=== PATIENT | female | born 1980 | race Caucasian/White ===

== ENCOUNTER 2020-10-12 14:45 | Inpatient (IN) ==
[2020-10-12] MEDS ORDERED: *HR* HYDROmorphone (PF) 1 MG/ML SYRINGE IVP STA (15:23)
[2020-10-12] MEDS ORDERED: Isovue-370 500 ML BOTTLE IVP ONE ×2 (15:23→16:40)
[2020-10-12] MEDS ORDERED: Piperacillin/Tazobactam 3.375 GM in Water for inj. (sterile) 20 ML IVP ONE (15:24)
[2020-10-12 15:38] LABS: Hematocrit 34.7 % (35.3-44.9); Hemoglobin 11.7 g/dL (11.5-15.4); Mean Corpuscular HGB Conc 33.7 g/dL (31.6-35.5); Mean Corpuscular Hemoglobin 30.4 pg (28.0-33.3); Mean Corpuscular Volume 90.1 fL (83.0-100.0); Platelet Count 114 K/mcL (140-400); Red Blood Count 3.85 M/mcL (3.82-4.97); Red Cell Distribution Width 12.7 % (11.5-14.5); White Blood Count 17.9 K/mcL (4.3-11.1)
[2020-10-12 15:59] LABS: Bilirubin,Urine Negative (Negative); Blood,Urine Negative (Negative); Clarity,Urine Clear (Clear); Color,Urine Yellow (Yellow); Glucose,Urine (UA) Normal (Normal); Ketones,Urine Negative (Negative); Leukocyte Esterase,Urine Negative (Negative); Nitrite,Urine Negative (Negative); Protein,Urine Trace mg/dL (Neg-Trace); Specific Gravity,Urine 1.012 (1.010-1.025); Urobilinogen,Urine Normal (Normal)
[2020-10-12 16:02] LABS: Basophils # 0.4 K/mcL (0.0-0.2); Lymphocytes # 1.8 K/mcL (0.6-4.6); Neutrophils # 15.8 K/mcL (1.6-8.9); Reactive Lymphocytes Present (Not Present)
[2020-10-12 16:06] LABS: Alanine Aminotransferase 33 Units/L (7-52); Albumin 2.8 g/dL (3.5-5.7); Albumin/Globulin Ratio 0.9 (1.1-2.2); Alkaline Phosphatase 365 Units/L (34-104); Aspartate Amino Transferase 37 Units/L (13-39); BUN/Creatinine Ratio 19 (6-26); Bilirubin,Direct 1.5 mg/dL (0.0-0.2); Bilirubin,Indirect 0.8 mg/dL (0.0-1.0); Bilirubin,Total 2.3 mg/dL (0.3-1.0); Blood Urea Nitrogen 16 mg/dL (6-20); Calcium 8.5 mg/dL (8.6-10.3); Carbon Dioxide 24 mEq/L (23-29); Chloride 104 mEq/L (98-107); Globulin 3.2 g/dL (2.4-3.5); Glucose 93 mg/dL (70-105); Lipase 13 Units/L (11-82); Magnesium 1.9 mg/dL (1.6-2.6); Osmolality,Calculated 281 (280-300); Phosphorous 1.5 mg/dL (2.7-4.5); Potassium 4.1 mEq/L (3.5-5.1); Sodium 135 mEq/L (136-145); Troponin I 0.12 ng/mL (< 0.04); eGFR For African Americans > 60 (> 60); eGFR For Non-African Americans > 60 (> 60)
[2020-10-12] MEDS ORDERED: Aspirin 81 MG TAB.CHEW PO ONE (16:30)
[2020-10-12] MEDS ORDERED: 0.9 % Sodium Chloride 1,000 ML IVC ONE ×2 (16:37→21:19)
[2020-10-12] MEDS ORDERED: *HR* Heparin 5,000 UNIT/ML VIAL IVP ONE (17:34)
[2020-10-12] MEDS ORDERED: *HR* Heparin 5,000 UNIT/ML VIAL IVP PRN (17:34)
[2020-10-12] MEDS ORDERED: Heparin 25,000UNIT/250ML 1/2NS 25,000 UNIT/250 ML IV.SOLN IVC SCH (17:45)
[2020-10-12] MEDS ORDERED: Naloxone 0.4 MG/ML INJ IVP PRN (20:29)
[2020-10-12] MEDS ORDERED: Ondansetron 4 MG/2 ML VIAL IVP PRN (20:33)
[2020-10-12 21:22] LABS: Heparin anti-factor XA UFH 0.04 IU/mL (0.30-0.70)
[2020-10-12 21:23] LABS: INR 1.2; Prothrombin Time 13.8 Seconds (9.4-12.1)
[2020-10-12 22:03] LABS: Adenovirus Not Detected (Not Detect); Bordetella Pertussis Not Detected (Not Detect); Chlamydophila pneumoniae Not Detected (Not Detect); Coronavirus 229E Not Detected (Not Detect); Coronavirus HKU1 Not Detected (Not Detect); Coronavirus NL63 Not Detected (Not Detect); Coronavirus OC43 Not Detected (Not Detect); Human Metapneumovirus Not Detected (Not Detect); Human Rhinovirus/Enterovirus Not Detected (Not Detect); Influenza A Subtype 2009 H1 Not Detected (Not Detect); Influenza B Not Detected (Not Detect); Mycoplasma pneumoniae Not Detected (Not Detect); Parainfluenza Virus 1 Not Detected (Not Detect); Parainfluenza Virus 2 Not Detected (Not Detect); Parainfluenza Virus 3 Not Detected (Not Detect); Parainfluenza Virus 4 Not Detected (Not Detect); Respiratory Syncytial Virus Not Detected (Not Detect); SARS-CoV-2 Not Detected (Not Detect)
[2020-10-12] MEDS ORDERED: *HR* OxyCODONE Immed Rel 5 MG TABLET PO PRN (22:13)
[2020-10-12] MEDS ORDERED: Acetaminophen 325 MG TABLET PO PRN (22:13)
[2020-10-12] MEDS: *HR* OxyCODONE Immed Rel 5 MG TABLET PO PRN (22:40)
[2020-10-13] MEDS: Piperacillin/Tazobactam 3.375 GM in 0.9 % Sodium Chloride Mini Bag 100 ML IVPB SCH ×3 (00:47→15:51)
[2020-10-13] MEDS: *HR* Heparin 5,000 UNIT/ML VIAL IVP PRN ×2 (00:54→07:48)
[2020-10-13 01:30] LABS: Basophils # 0.1 K/mcL (0.0-0.2); Basophils % 0.3 %; Eosinophils # 0.1 K/mcL (0.0-0.6); Eosinophils % 0.3 %; Hematocrit 31.2 % (35.3-44.9); Hemoglobin 10.4 g/dL (11.5-15.4); Immature Granulocytes % 1.7 % (0-4); Lymphocytes # 2.7 K/mcL (0.6-4.6); Lymphocytes % 14.8 %; Mean Corpuscular HGB Conc 33.3 g/dL (31.6-35.5); Mean Corpuscular Hemoglobin 29.9 pg (28.0-33.3); Mean Corpuscular Volume 89.7 fL (83.0-100.0); Monocytes % 5.3 %; Neutrophils # 14.1 K/mcL (1.6-8.9); Platelet Count 135 K/mcL (140-400); Red Blood Count 3.48 M/mcL (3.82-4.97); Red Cell Distribution Width 12.8 % (11.5-14.5); Segmented Neutrophils % 77.6 %; White Blood Count 18.2 K/mcL (4.3-11.1)
[2020-10-13 01:50] LABS: BUN/Creatinine Ratio 19 (6-26); Blood Urea Nitrogen 15 mg/dL (6-20); Calcium 7.6 mg/dL (8.6-10.3); Carbon Dioxide 20 mEq/L (23-29); Chloride 110 mEq/L (98-107); Glucose 99 mg/dL (70-105); Osmolality,Calculated 283 (280-300); Potassium 4.1 mEq/L (3.5-5.1); Sodium 136 mEq/L (136-145); eGFR For African Americans > 60 (> 60); eGFR For Non-African Americans > 60 (> 60)
[2020-10-13] MEDS ORDERED: Azithromycin 500 MG in 0.9 % Sodium Chloride 250 ML IVPB SCH (03:00)
[2020-10-13] MEDS: Azithromycin 500 MG in 0.9 % Sodium Chloride 250 ML IVPB SCH (03:59)
[2020-10-13] MEDS: *HR* OxyCODONE Immed Rel 5 MG TABLET PO PRN ×4 (04:34→16:59)
[2020-10-13] MEDS ORDERED: *HR* HYDROMORPHONE 2 MG/ML VIAL ONE ×2 (14:45→15:44)
[2020-10-13] MEDS ORDERED: *HR* Propofol 200 MG/20 ML VIAL IVP ONE (14:45)
[2020-10-13] MEDS ORDERED: *HR* Midazolam HCl 2 MG/2 ML VIAL ONE (14:45)
[2020-10-13] MEDS ORDERED: Lidocaine -MPF 2% 2 ML VIAL ONE (14:47)
[2020-10-13] MEDS ORDERED: Dexamethasone 4 MG/ML VIAL ONE (14:47)
[2020-10-13] MEDS ORDERED: Ondansetron 4 MG/2 ML VIAL ONE (14:47)
[2020-10-13] MEDS ORDERED: *HR* Succinylcholine 200 MG/10 ML VIAL IVP ONE (14:47)
[2020-10-13] MEDS ORDERED: Lidocaine HCL 4 ML Topical Solution (Laryng-O-Jet Kit Sterile Pak) TP ONE (14:47)
[2020-10-13] MEDS ORDERED: Lidocaine/EPI 1:200k 1% PF 10 ML VIAL ONE (14:50)
[2020-10-13] MEDS ORDERED: Ondansetron 4 MG/2 ML VIAL IVP PRN ×3 (15:18→17:27)
[2020-10-13] MEDS ORDERED: *HR* Labetalol 20 MG/4 ML SYRINGE IVP PRN ×2 (15:18→17:27)
[2020-10-13] MEDS: *HR* HYDROmorphone (PF) 1 MG/ML SYRINGE IVP PRN ×6 (16:34→17:05)
[2020-10-13] MEDS ORDERED: Naloxone 0.4 MG/ML INJ IVP PRN (17:27)
[2020-10-13] MEDS ORDERED: *HR* OxyCODONE Immed Rel 5 MG TABLET PO PRN (17:27)
[2020-10-13] MEDS ORDERED: *HR* Heparin 5,000 UNIT/ML VIAL IVP PRN (17:27)
[2020-10-13] MEDS ORDERED: Acetaminophen 325 MG TABLET PO PRN (17:27)
[2020-10-13] MEDS: Heparin 25,000UNIT/250ML 1/2NS 25,000 UNIT/250 ML IV.SOLN IVC SCH (18:53)
[2020-10-14] MEDS: *HR* OxyCODONE Immed Rel 5 MG TABLET PO PRN ×4 (00:10→23:03)
[2020-10-14] MEDS: Piperacillin/Tazobactam 3.375 GM in 0.9 % Sodium Chloride Mini Bag 100 ML IVPB SCH ×3 (00:11→16:50)
[2020-10-14] MEDS: *HR* Heparin 5,000 UNIT/ML VIAL IVP PRN ×2 (01:34→17:51)
[2020-10-14 06:02] LABS: Basophils # 0.1 K/mcL (0.0-0.2); Basophils % 0.5 %; Eosinophils % 0.1 %; Hematocrit 30.5 % (35.3-44.9); Hemoglobin 10.1 g/dL (11.5-15.4); Immature Granulocytes % 4.9 % (0-4); Lymphocytes # 2.4 K/mcL (0.6-4.6); Lymphocytes % 14.3 %; Mean Corpuscular HGB Conc 33.1 g/dL (31.6-35.5); Mean Corpuscular Hemoglobin 29.7 pg (28.0-33.3); Mean Corpuscular Volume 89.7 fL (83.0-100.0); Mean Platelet Volume 11.3 fL (9.4-12.4); Monocytes % 5.9 %; Neutrophils # 12.3 K/mcL (1.6-8.9); Platelet Count 173 K/mcL (140-400); Red Cell Distribution Width 13.4 % (11.5-14.5); Segmented Neutrophils % 74.3 %; White Blood Count 16.6 K/mcL (4.3-11.1)
[2020-10-14 06:25] LABS: Alanine Aminotransferase 50 Units/L (7-52); Albumin 2.5 g/dL (3.5-5.7); Albumin/Globulin Ratio 0.8 (1.1-2.2); Alkaline Phosphatase 296 Units/L (34-104); Aspartate Amino Transferase 49 Units/L (13-39); BUN/Creatinine Ratio 16 (6-26); Bilirubin,Direct 0.4 mg/dL (0.0-0.2); Bilirubin,Indirect 0.4 mg/dL (0.0-1.0); Bilirubin,Total 0.8 mg/dL (0.3-1.0); Blood Urea Nitrogen 12 mg/dL (6-20); Calcium 7.6 mg/dL (8.6-10.3); Carbon Dioxide 18 mEq/L (23-29); Chloride 112 mEq/L (98-107); Globulin 3.2 g/dL (2.4-3.5); Glucose 128 mg/dL (70-105); Osmolality,Calculated 285 (280-300); Potassium 4.2 mEq/L (3.5-5.1); Sodium 137 mEq/L (136-145); Total Protein 5.7 g/dL (6.4-8.9); eGFR For African Americans > 60 (> 60); eGFR For Non-African Americans > 60 (> 60)
[2020-10-14] MEDS ORDERED: *HR* HYDROmorphone (PF) 1 MG/ML SYRINGE IVP PRN (13:03)
[2020-10-14] MEDS: Heparin 25,000UNIT/250ML 1/2NS 25,000 UNIT/250 ML IV.SOLN IVC SCH (13:35)
[2020-10-14] MEDS: Melatonin 3 MG TABLET PO PRN (21:42)
[2020-10-15] MEDS: Piperacillin/Tazobactam 3.375 GM in 0.9 % Sodium Chloride Mini Bag 100 ML IVPB SCH ×3 (00:47→16:43)
[2020-10-15] MEDS: Heparin 25,000UNIT/250ML 1/2NS 25,000 UNIT/250 ML IV.SOLN IVC SCH (02:45)
[2020-10-15] MEDS ORDERED: Heparin 25,000UNIT/250ML 1/2NS 25,000 UNIT/250 ML IV.SOLN IVC SCH (03:00)
[2020-10-15] MEDS: *HR* OxyCODONE Immed Rel 5 MG TABLET PO PRN ×4 (05:07→23:56)
[2020-10-15] MEDS: Azithromycin 500 MG in 0.9 % Sodium Chloride 250 ML IVPB SCH (05:59)
[2020-10-15 06:36] LABS: Basophils # 0.1 K/mcL (0.0-0.2); Basophils % 0.6 %; Eosinophils # 0.1 K/mcL (0.0-0.6); Eosinophils % 0.6 %; Hematocrit 29.8 % (35.3-44.9); Hemoglobin 9.9 g/dL (11.5-15.4); Immature Granulocytes % 5.6 % (0-4); Lymphocytes # 3.1 K/mcL (0.6-4.6); Mean Corpuscular HGB Conc 33.2 g/dL (31.6-35.5); Mean Corpuscular Hemoglobin 29.9 pg (28.0-33.3); Mean Platelet Volume 10.8 fL (9.4-12.4); Monocytes # 1.1 K/mcL (0.0-1.3); Monocytes % 7.9 %; Platelet Count 220 K/mcL (140-400); Red Blood Count 3.31 M/mcL (3.82-4.97); Red Cell Distribution Width 13.7 % (11.5-14.5); Segmented Neutrophils % 63.3 %; White Blood Count 14.2 K/mcL (4.3-11.1)
[2020-10-15 06:58] LABS: Alanine Aminotransferase 36 Units/L (7-52); Albumin 2.4 g/dL (3.5-5.7); Albumin/Globulin Ratio 0.7 (1.1-2.2); Alkaline Phosphatase 270 Units/L (34-104); Aspartate Amino Transferase 26 Units/L (13-39); BUN/Creatinine Ratio 17 (6-26); Bilirubin,Direct 0.4 mg/dL (0.0-0.2); Bilirubin,Indirect 0.4 mg/dL (0.0-1.0); Bilirubin,Total 0.8 mg/dL (0.3-1.0); Blood Urea Nitrogen 13 mg/dL (6-20); Calcium 7.8 mg/dL (8.6-10.3); Carbon Dioxide 20 mEq/L (23-29); Chloride 110 mEq/L (98-107); Globulin 3.3 g/dL (2.4-3.5); Glucose 105 mg/dL (70-105); Osmolality,Calculated 284 (280-300); Potassium 3.7 mEq/L (3.5-5.1); Sodium 137 mEq/L (136-145); Total Protein 5.7 g/dL (6.4-8.9); eGFR For African Americans > 60 (> 60); eGFR For Non-African Americans > 60 (> 60)
[2020-10-15 08:18] LABS: Heparin anti-factor XA UFH 0.36 IU/mL (0.30-0.70)
[2020-10-15] MEDS: Apixaban 5 MG TABLET PO SCH ×2 (13:05→20:18)
[2020-10-15 14:39] LABS: Anisocytosis 1+ (Not Present); Platelet Estimate Normal (Normal)
[2020-10-15] MEDS: Nicotine 14 MG PATCH.TD24 TD SCH (16:43)
[2020-10-15] MEDS: Melatonin 3 MG TABLET PO PRN (23:55)
[2020-10-16] MEDS: Piperacillin/Tazobactam 3.375 GM in 0.9 % Sodium Chloride Mini Bag 100 ML IVPB SCH ×2 (00:20→07:50)
[2020-10-16 01:30] LABS: Basophils % 0.3 %; Eosinophils # 0.1 K/mcL (0.0-0.6); Eosinophils % 0.8 %; Hematocrit 32.8 % (35.3-44.9); Hemoglobin 10.8 g/dL (11.5-15.4); Immature Granulocytes % 7.4 % (0-4); Lymphocytes # 3.1 K/mcL (0.6-4.6); Lymphocytes % 25.1 %; Mean Corpuscular HGB Conc 32.9 g/dL (31.6-35.5); Mean Corpuscular Hemoglobin 30.6 pg (28.0-33.3); Mean Corpuscular Volume 92.9 fL (83.0-100.0); Mean Platelet Volume 10.9 fL (9.4-12.4); Monocytes # 1.2 K/mcL (0.0-1.3); Monocytes % 9.8 %; Platelet Count 256 K/mcL (140-400); Red Blood Count 3.53 M/mcL (3.82-4.97); Red Cell Distribution Width 13.6 % (11.5-14.5); Segmented Neutrophils % 56.6 %; White Blood Count 12.4 K/mcL (4.3-11.1)
[2020-10-16 01:54] LABS: BUN/Creatinine Ratio 13 (6-26); Blood Urea Nitrogen 9 mg/dL (6-20); Calcium 7.9 mg/dL (8.6-10.3); Carbon Dioxide 19 mEq/L (23-29); Chloride 110 mEq/L (98-107); Glucose 99 mg/dL (70-105); Osmolality,Calculated 283 (280-300); Potassium 3.4 mEq/L (3.5-5.1); Sodium 137 mEq/L (136-145); eGFR For African Americans > 60 (> 60); eGFR For Non-African Americans > 60 (> 60)
[2020-10-16 02:03] LABS: Platelet Estimate Normal (Normal)
[2020-10-16] MEDS: Azithromycin 500 MG in 0.9 % Sodium Chloride 250 ML IVPB SCH (03:57)
[2020-10-16] MEDS: *HR* OxyCODONE Immed Rel 5 MG TABLET PO PRN (05:46)
[2020-10-16 07:03] VITALS: BP 131/74
[2020-10-16] MEDS: Nicotine 14 MG PATCH.TD24 TD SCH (08:27)
[2020-10-16] MEDS: Apixaban 5 MG TABLET PO SCH (08:37)
== END 2020-10-16 11:04 | disposition home or self-care (01) | DRG 720 ==
LOC: 3NENU 14:45 → EMEROOARM 14:45 → SUATTDRO 18:40 → 3NENU 18:58
PROVIDERS: ADMIT Internal Medicine; ATTEND Internal Medicine